=== PATIENT | female | born 2000 | race Caucasian/White ===

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

== ENCOUNTER 2019-02-01 09:28 | Emergency (ER) | payer SELFPAY ==
[2019-02-01] MEDS ORDERED: ACETAMINOPHEN 325 MG TABLET PO ONE (10:24)
[2019-02-01] MEDS ORDERED: IBUPROFEN 600 MG TABLET PO ONE (10:24)
--- NOTE | 2019-02-01 10:24 | ER Document Report ---
Addendum entered and electronically signed by NINA CAMARGO FNP 02/01/19 22:44: Procedures - Immobilization Right Distal Leg Pre-Proc Neuro Vasc Exam: Normal Immobilizer type: Short Leg Posterior Performed by: PCT Post-Proc Neuro Vasc Exam: Normal, Unchanged from pre-exam Alignment checked and good: Yes Original Note: HPI - HPI Time Seen by Provider: 02/01/19 10:06 Pain Level: 5 Context: Patient is a 18-year-old female who presents the emergency department with a chief complaint of right ankle and lower leg pain. She was skateboarding yesterday and twisted her ankle medially and her leg went laterally. There is some ecchymosis and edema to the area. Admits to some tingling to the area. She has been taking ibuprofen and icing her ankle and leg at home. Denies any past medical history. Not taking any medications other than ibuprofen. - CONSTITUTIONAL Constitutional: DENIES: Chills - EENT EENT: DENIES: Sore Throat, Ear Pain - NEURO Neurology: DENIES: Headache - RESPIRATORY Respiratory: DENIES: Trouble Breathing, Coughing - REPRODUCTIVE Reproductive: DENIES: : - MUSCULOSKELETAL Musculoskeletal: REPORTS: Extremity pain - Right ankle and lower leg - DERM Skin Color: Normal, Ecchymosis - Right ankle Skin Problems: Abrasion - Right lateral ankle and right lateral proximal fibula area Past Medical History - Social History Smoking Status: Unknown if Ever Smoked Family History: Reviewed & Not Pertinent - Immunizations Hx Diphtheria, Pertussis, Tetanus Vaccination: Yes Vertical Provider Document - CONSTITUTIONAL Agree With Documented VS: Yes Exam Limitations: No Limitations General Appearance: No Apparent Distress - INFECTION CONTROL TRAVEL OUTSIDE OF THE [place] IN LAST 30 DAYS: No - HEENT HEENT: Atraumatic, Normocephalic - NECK Neck: Normal Inspection - RESPIRATORY Respiratory: Breath Sounds Normal, No Respiratory Distress - CARDIOVASCULAR Cardiovascular: Regular Rate, Regular Rhythm Pulses: Normal: Posterior tibial, Dorsalis pedis - MUSCULOSKELETAL/EXTREMETIES Musculoskeletal/Extremeties: Tender - Right ankle and lower extremity - NEURO Level of Consciousness: Awake, Alert, Appropriate Motor/Sensory: No Motor Deficit, No Sensory Deficit, No Pronator Drift - DERM Integumentary: Warm, Dry Course - Re-evaluation Re-evalutation: 02/01/19 10:26 Patient will be sent for a right ankle and tib-fib x-ray. I do not suspect compartment syndrome. Patient has good dorsalis pedis and posterior tibial pulses. 02/01/19 11:10 Patient has a bimalleolar fracture. She will follow-up with orthopedics tomorrow. She will be placed in a splint. Results were given to the patient. Verbal discharge instructions were given to the patient. They verbalized understanding. They are stable for discharge. - Vital Signs Vital signs: Temp Pulse Resp BP Pulse Ox 98.5 F 120 H 16 103/65 100 02/01/19 09:33 02/01/19 09:33 02/01/19 09:33 02/01/19 09:33 02/01/19 09:33 Discharge - Discharge Clinical Impression: Bimalleolar fracture Qualifiers: Encounter type: initial encounter Fracture type: closed Laterality: right Qualified Code(s): S82.841A - Displaced bimalleolar fracture of right lower leg, initial encounter for closed fracture Condition: Stable Disposition: HOME, SELF-CARE Instructions: Use of Crutches ([facility]), Ice & Elevation ([facility]) Additional Instructions: You were seen today in the emergency department for right ankle pain. You do have a fracture. Please follow-up with orthopedics tomorrow. You have been put in a cast. Please rest the area, elevate your leg, and do not walk on your leg. You have been provided crutches. Please take ibuprofen 600 mg and Tylenol 1000 mg every 6 hours as needed for your pain. If you develop worsening swelling, are unable to move your toes, or any symptoms that are worrisome to you, please return to the emergency department. Forms: Return to Work Referrals: LAKIA ANTHONY MD [ACTIVE STAFF] - Follow up as needed EDUARD OJEDA DO [ACTIVE STAFF] - Follow up tomorrow
--- NOTE | 2019-02-01 10:54 | RADIOLOGY REPORT (SQ) ---
EXAM DESCRIPTION: TIBIA FIBULA RIGHT; ANKLE RIGHT COMPLETE COMPLETED DATE/TIME: 02/01/2019 10:43 am REASON FOR STUDY: fall COMPARISON: None. NUMBER OF VIEWS: Five views. TECHNIQUE: Two radiographic images acquired of the right tibia and fibula to include the knee and an kle in at least one projection. Three views of the right ankle. LIMITATIONS: None. FINDINGS: MINERALIZATION: Normal. BONES: Spiral fracture distal fibula at level of syndesmosis with approximately 1/2 shaft width poste rior displacement. Nondisplaced fracture of the posterior malleolus. Widening of the medial mortise . SOFT TISSUES: No foreign body. OTHER: No other significant finding. IMPRESSION: Bimalleolar ankle fracture. TECHNICAL DOCUMENTATION: JOB ID: [id number] [employer]- All Rights Reserved Reading location - IP/workstation name: [email or web address]
--- NOTE | 2019-02-01 10:54 | RADIOLOGY REPORT (SQ) ---
EXAM DESCRIPTION: TIBIA FIBULA RIGHT; ANKLE RIGHT COMPLETE COMPLETED DATE/TIME: 02/01/2019 10:43 am REASON FOR STUDY: fall COMPARISON: None. NUMBER OF VIEWS: Five views. TECHNIQUE: Two radiographic images acquired of the right tibia and fibula to include the knee and an kle in at least one projection. Three views of the right ankle. LIMITATIONS: None. FINDINGS: MINERALIZATION: Normal. BONES: Spiral fracture distal fibula at level of syndesmosis with approximately 1/2 shaft width poste rior displacement. Nondisplaced fracture of the posterior malleolus. Widening of the medial mortise . SOFT TISSUES: No foreign body. OTHER: No other significant finding. IMPRESSION: Bimalleolar ankle fracture. TECHNICAL DOCUMENTATION: JOB ID: [id number] [employer]- All Rights Reserved Reading location - IP/workstation name: [email or web address]
[2019-02-01 12:00] VITALS: BP 126/80
== END 2019-02-01 12:03 | disposition home or self-care (01) ==
LOC: ER 09:28
DX: S82.841A Displaced bimalleolar fracture of right lower leg, initial encounter for closed fracture (principal); X50.1XXA Overexertion from prolonged static or awkward postures, initial encounter; Y93.51 Activity, roller skating (inline) and skateboarding; R20.2 Paresthesia of skin
CPT/HCPCS: 99283

== ENCOUNTER 2019-02-08 08:22 | Day surgery (SDC) | payer SELFPAY ==
[2019-02-05 10:56] LABS: APPEARANCE,URINE CLEAR; BILIRUBIN,URINE NEGATIVE (NEGATIVE); COLOR,URINE YELLOW; GLUCOSE, URINE NEGATIVE (NEGATIVE); KETONES,URINE NEGATIVE (NEGATIVE); LEUKOCYTE ESTERASE,URINE MODERATE (NEGATIVE); NITRITE,URINE NEGATIVE (NEGATIVE); PROTEIN,URINE NEGATIVE (NEGATIVE); URINE SPECIFIC GRAVITY 1.021; UROBILINOGEN,URINE NEGATIVE mg/dL (<2.0)
[2019-02-05 10:57] LABS: ABSOLUTE EOSINOPHILS # (AUTO) 0.1 10^3/uL (0.0-0.6); ABSOLUTE LYMPHOCYTES (AUTO) 1.6 10^3/uL (0.5-4.7); ABSOLUTE MONOCYTES (AUTO) 0.6 10^3/uL (0.1-1.4); ABSOLUTE NEUT (AUTO) 5.3 10^3/uL (1.7-8.2); BASOPHILS % (AUTO) 0.6 % (0-2); EOSINOPHILS % (AUTO) 0.9 % (0-6); HEMATOCRIT 38.2 % (36.0-47.0); HEMOGLOBIN 13.4 g/dL (12.0-15.5); LYMPHOCYTES % (AUTO) 21.4 % (13-45); MEAN CORPUSCULAR HEMOGLOBIN 31.4 pg (27.0-33.4); MEAN CORPUSCULAR VOLUME 90 fl (80-97); MONOCYTES % (AUTO) 7.6 % (3-13); PLATELET COUNT 268 10^3/uL (150-450); RED BLOOD COUNT 4.25 10^6/uL (3.72-5.28); RED CELL DISTRIBUTION WIDTH 12.8 % (11.5-14.0); SEGMENTED NEUTROPHILS % (AUTO) 69.5 % (42-78); TOTAL CELLS COUNTED % (AUTO) 100 %; WHITE BLOOD COUNT 7.6 10^3/uL (4.0-10.5)
[2019-02-05 11:18] LABS: ANION GAP 13 (5-19); BLOOD UREA NITROGEN 12 mg/dL (7-20); CALCIUM 9.9 mg/dL (8.4-10.2); CARBON DIOXIDE 24 mmol/L (22-30); CHLORIDE 106 mmol/L (98-107); GLUCOSE 84 mg/dL (75-110); POTASSIUM 4.4 mmol/L (3.6-5.0); SODIUM 143.2 mmol/L (137-145)
--- NOTE | 2019-02-05 20:50 | EKG REPORT ---
SEVERITY:- NORMAL ECG - SINUS RHYTHM : Confirmed by: Sarah Beth Garcia MD 05-Feb-2019 20:49:49
[~2019-02-08 08:22] MED LIST: CEFAZOLIN 2 GM/D5W RTU 2 GM/50 ML RTUPB IV PRN; LACTATED RINGERS 1000 ML IV PRN; LIDOCAINE 0.5% INJ-PF (5 MG/ML) 50 ML SDV SUBCUT PRN
[2019-02-08] MEDS ORDERED: CEFAZOLIN 2 GM/D5W RTU 2 GM/50 ML RTUPB IV ONE (08:57)
[2019-02-08] MEDS ORDERED: FENTANYL CITRATE INJ/PF 100 MCG/2 ML AMPUL ONE ×2 (09:22→10:40)
[2019-02-08] MEDS ORDERED: PROPOFOL INJ 200 MG/20 ML VIAL IV ONE (09:22)
[2019-02-08] MEDS ORDERED: ATROPINE SULFATE INJ 1 MG/10 ML DISP.SYRIN IV ONE (09:23)
[2019-02-08] MEDS ORDERED: BUPIVACAINE HCL 0.25% /EPINEPHRINE INJ/PF 30 ML SDV ONE (09:46)
[2019-02-08] MEDS ORDERED: ONDANSETRON HCL INJ/PF 4 MG/2 ML SDV ONE (10:40)
[2019-02-08] MEDS ORDERED: ACETAMINOPHEN 1,000 MG/100 ML RTUPB IV ONE (10:40)
[2019-02-08] MEDS ORDERED: DEXAMETHASONE SOD PHOSPHATE INJ 4 MG/1 ML VIAL ONE (10:40)
[2019-02-08] MEDS ORDERED: MIDAZOLAM 2 MG/2 ML INJ ONE (10:40)
[2019-02-08] MEDS ORDERED: DIPHENHYDRAMINE HCL 50 MG/ML VIAL IV PRN (11:47)
[2019-02-08] MEDS ORDERED: MORPHINE SULFATE 10 MG/ML INJ IV PRN (11:47)
[2019-02-08] MEDS ORDERED: ONDANSETRON HCL INJ/PF 4 MG/2 ML SDV IV PRN (11:47)
[2019-02-08] MEDS ORDERED: FENTANYL CITRATE INJ/PF 100 MCG/2 ML AMPUL IV PRN ×3 (11:47)
[2019-02-08] MEDS ORDERED: MEPERIDINE HCL/PF INJ 25 MG/1 ML DISP.SYRIN IV PRN (11:47)
[2019-02-08] MEDS ORDERED: PROMETHAZINE HCL INJ 25 MG/1 ML VIAL IV PRN ×2 (11:47)
--- NOTE | 2019-02-08 12:02 | Discharge Summary ---
Discharge Summary (SDC) - Discharge Final Diagnosis: Right lateral malleolus fracture Date of Surgery: 02/08/19 Discharge Date: 02/08/19 Condition: Good Treatment or Instructions: Touchdown weightbearing restriction right lower extremity. Keep splint clean and dry. Elevate to decrease swelling. Prescriptions: Oxycodone HCl/Acetaminophen [Percocet 5-325 mg Tablet] 1 tab PO Q6 PRN #40 tab PRN Reason: Referrals: CHRIS BORDEN DO [Primary Care Provider] - Discharge Diet: As Tolerated, Regular Respiratory Treatments at Home: Deep Breathing/Coughing Discharge Activity: Balance Activity w/Rest, No Driving, No tub bath, Other - Touchdown weightbearing restriction right lower extremity Home Care Assistance: None Needed Adaptive Devices on Discharge: Axillary Crutches Report the Following to Your Physician Immediately: Shortness of Breath, Fever over 101 Degrees, Drainage-Foul Smelling
--- NOTE | 2019-02-08 12:04 | Operative Report ---
Operative Report DATE OF SURGERY: 02/08/19 PREOPERATIVE DIAGNOSIS: Right lateral malleolus fracture OPERATION: Open reduction internal fixation right lateral malleolus SURGEON: LA SWAIN ANESTHESIA: GA ESTIMATED BLOOD LOSS: 25 PROCEDURE: With the patient supine on the operative table the right lower extremities prepped and draped for sterile fashion. Limb is elevated for exsanguination rene rniquet inflated to 280 torr. Longitudinal incisions made over the distal lateral fibula and sharp dissection was carried incision to the sub-periosteum. Subperiosteal was elevated. The fracture was reduced under direct visualization. Is held with a temporary interfrag pin. Subsequently [place] titanium distal fibula plate is applied and secured with 4 screws distally and 4 screws proximally. Hardware position and fracture reduction were assessed fluoroscopically and felt to be adequate. The tourniquet is deflated. Wound is irrigated with bulb lavage. Hemostasis obtained with electrocautery. Wounds closed in layers interrupted Vicryl followed by severino. A sterile compressive dressing posterior plaster splint were applied and the patient's return to the PACU in satisfactory condition.
[2019-02-08] MEDS: FENTANYL CITRATE INJ/PF 100 MCG/2 ML AMPUL ONE ×2 (12:30→12:35)
[2019-02-08] MEDS: MORPHINE SULFATE 10 MG/ML INJ ONE ×2 (12:41→12:46)
--- NOTE | 2019-02-08 13:24 | RADIOLOGY REPORT (SQ) ---
EXAM DESCRIPTION: NO CHG FLUORO; ANKLE RIGHT AP/LATERAL COMPLETED DATE/TIME: 02/08/2019 1:13 pm REASON FOR STUDY: ORIF RT ANKLE ASST WITH FLUORO IN OR S82.841A DISPLACED BIMALLEOLAR FRACTURE OF R IGHT LOWER LEG, COMPARISON: 02/01/2019. FLUOROSCOPY TIME: 0.1 minute. 2 images saved to PACS. TECHNIQUE: Intra-operative images acquired during surgical procedure to evaluate progress. NUMBER OF IMAGES: 2 images. LIMITATIONS: None. FINDINGS: Surgical fixation with placement of hardware on the distal fibula. IMPRESSION: IMAGE(S) OBTAINED DURING PROCEDURE. COMMENT: Quality ID 145: Final reports for procedures using fluoroscopy that document radiation exp osure indices, or exposure time and number of fluorographic images (if radiation exposure indices are not available) Please consult full operative report of the attending physician for description of the procedure. TECHNICAL DOCUMENTATION: JOB ID: [id number] [employer]- All Rights Reserved Reading location - IP/workstation name: [email or web address]
--- NOTE | 2019-02-08 13:24 | RADIOLOGY REPORT (SQ) ---
EXAM DESCRIPTION: NO CHG FLUORO; ANKLE RIGHT AP/LATERAL COMPLETED DATE/TIME: 02/08/2019 1:13 pm REASON FOR STUDY: ORIF RT ANKLE ASST WITH FLUORO IN OR S82.841A DISPLACED BIMALLEOLAR FRACTURE OF R IGHT LOWER LEG, COMPARISON: 02/01/2019. FLUOROSCOPY TIME: 0.1 minute. 2 images saved to PACS. TECHNIQUE: Intra-operative images acquired during surgical procedure to evaluate progress. NUMBER OF IMAGES: 2 images. LIMITATIONS: None. FINDINGS: Surgical fixation with placement of hardware on the distal fibula. IMPRESSION: IMAGE(S) OBTAINED DURING PROCEDURE. COMMENT: Quality ID 145: Final reports for procedures using fluoroscopy that document radiation exp osure indices, or exposure time and number of fluorographic images (if radiation exposure indices are not available) Please consult full operative report of the attending physician for description of the procedure. TECHNICAL DOCUMENTATION: JOB ID: [id number] [employer]- All Rights Reserved Reading location - IP/workstation name: [email or web address]
[2019-02-08] MEDS ORDERED: OXYCODONE-ACETAMINOPHEN 5-325 MG TABLET ONE (13:28)
[2019-02-08] MEDS ORDERED: KETOROLAC TROMETHAMINE INJ/PF 30 MG/1 ML SDV ONE (13:41)
[2019-02-08 14:42] VITALS: BP 129/84
== END 2019-02-08 14:20 | disposition home or self-care (01) ==
LOC: OROUT 08:22
PROVIDERS: ATTEND Orthopaedic Surgery
DX: S82.61XA Displaced fracture of lateral malleolus of right fibula, initial encounter for closed fracture (principal); V00.131A Fall from skateboard, initial encounter
CPT/HCPCS: 93005; 36415; 85025; 81025; 80048; 81001; 73600; 93010; 27792; C1713 ×6; J2250; J3490; J1100; J3010; J1885; J2270; J2405; J2704; J0690; J0131; 01480; J0461

== ENCOUNTER 2019-03-05 09:19 | Emergency (ER) | payer MEDICAID ==
[2019-03-05] MEDS ORDERED: ACETAMINOPHEN 325 MG TABLET PO ONE (10:21)
--- NOTE | 2019-03-05 10:55 | RADIOLOGY REPORT (SQ) ---
EXAM DESCRIPTION: ANKLE RIGHT COMPLETE COMPLETED DATE/TIME: 03/05/2019 10:45 am REASON FOR STUDY: pain COMPARISON: 02/08/2019 NUMBER OF VIEWS: Three views. TECHNIQUE: AP, lateral, and oblique radiographic images acquired of the right ankle. LIMITATIONS: None. FINDINGS: MINERALIZATION: Normal. BONES: Images show compression plate on the distal fibula. No new or acute findings. JOINTS: No effusions. SOFT TISSUES: No soft tissue swelling. No foreign body. OTHER: No other significant finding. IMPRESSION: NEGATIVE STUDY OF THE RIGHT ANKLE. NO RADIOGRAPHIC EVIDENCE OF ACUTE INJURY. TECHNICAL DOCUMENTATION: JOB ID: [id number] [employer]- All Rights Reserved Reading location - IP/workstation name: [email or web address]
--- NOTE | 2019-03-05 11:48 | ER Document Report ---
HPI - HPI Patient complains to provider of: Right ankle pain Time Seen by Provider: 03/05/19 10:19 Pain Level: 4 Context: Patient is otherwise healthy 18-year-old female presents to the emergency department for increased pain in her right ankle. Patient sustained a bimalleolar fracture on 02/01/2019. Had a surgical repair on 02/08/2019. States orthopedic to keep her boot in place and use crutches. Patient states it felt better so she started walking on it prematurely. Patient states last couple of days since walking on it she has noticed increased pain and swelling to her right lower extremity which prompted her visit to the emergency room. Patient still taking oxycodone for generalized pain. - REPRODUCTIVE LMP: Dep shot Reproductive: DENIES: : Past Medical History - General Information source: Patient - Social History Smoking Status: Smoker,Current Status Unk Family History: Reviewed & Not Pertinent Patient has suicidal ideation: No Patient has homicidal ideation: No - Past Medical History Cardiac Medical History: Denies: Hx Coronary Artery Disease, Hx Heart Attack, Hx Hypertension Pulmonary Medical History: Denies: Hx Asthma, Hx Bronchitis, Hx COPD, Hx Pneumonia Neurological Medical History: Denies: Hx Cerebrovascular Accident, Hx Seizures Renal/ Medical History: Denies: Hx Peritoneal Dialysis Musculoskeletal Medical History: Denies Hx Arthritis - Immunizations Hx Diphtheria, Pertussis, Tetanus Vaccination: Yes Vertical Provider Document - CONSTITUTIONAL Agree With Documented VS: Yes Notes: GENERAL: Alert, interacts well. No acute distress. HEAD: Normocephalic, atraumatic. EYES: Pupils equal, round, and reactive to light. Extraocular movements intact. ENT: Oral mucosa moist, tongue midline. NECK: Full range of motion. Supple. Trachea midline. LUNGS: Clear to auscultation bilaterally, no wheezes, rales, or rhonchi. No respiratory distress. HEART: Regular rate and rhythm. No murmur ABDOMEN: Soft, non-tender. Non-distended. Bowel sounds present in all 4 quadrants. EXTREMITIES: Moves all 4 extremities spontaneously. normal radial and dorsalis pedis pulses bilaterally. No cyanosis. Minor edema noted right lower extremity. Steri-Strips are in place, some removed to reveal a well-healing scar right lateral ankle. No fluctuance or induration noted, no discharge noted. Minor warmth but no erythema noted distal right lower extremity. Capillary refill less than 2 seconds all 4 extremities. BACK: no cervical, thoracic, lumbar midline tenderness. No saddle anesthesia, normal distal neurovascular exam. NEUROLOGICAL: Alert and oriented x3. Normal speech. cranial nerves II through XII grossly intact PSYCH: Normal affect, normal mood. SKIN: Warm, dry, normal turgor. - INFECTION CONTROL TRAVEL OUTSIDE OF THE [place] IN LAST 30 DAYS: No Course - Re-evaluation Re-evalutation: 03/05/19 11:45 Patient's x-ray reveals no signs of abnormalities, hardware in place. Discussed continuation of use of boot and use of crutches to not put pressure on her right lower extremity. Discussed close follow-up with orthopedics. Patient stable for discharge. - Vital Signs Vital signs: Temp Pulse Resp BP Pulse Ox 98.3 F 103 H 16 143/69 H 99 03/05/19 09:26 03/05/19 09:26 03/05/19 09:26 03/05/19 09:03/05/19 09:26 Discharge - Discharge Clinical Impression: Right ankle pain Qualifiers: Chronicity: unspecified Qualified Code(s): M25.571 - Pain in right ankle and joints of right foot Condition: Stable Disposition: HOME, SELF-CARE Instructions: Use of Crutches ([facility]) Additional Instructions: As we discussed you have been seen and treated in the emergency meant for increased pain to your right lower extremity. Your x-ray reveals that your hardware is in place. Please make sure you continue to refrain from putting pressure on your right lower extremity, use your crutches at all times. Please follow-up with the orthopedic in the next 24 to 48 hours. Please also return to the emergency room should you notice any redness, increased swelling noted to your right lower extremity as well as discharge from your repair site. Referrals: LA SWAIN MD [ACTIVE STAFF] - Follow up as needed
[2019-03-05 12:00] VITALS: BP 111/64
== END 2019-03-05 12:00 | disposition home or self-care (01) ==
LOC: ER 09:19
DX: M25.571 Pain in right ankle and joints of right foot (principal); M79.89 Other specified soft tissue disorders; Z98.890 Other specified postprocedural states; F17.200 Nicotine dependence, unspecified, uncomplicated
CPT/HCPCS: 99283; 73610; J3490

== ENCOUNTER 2019-04-08 06:49 | Emergency (ER) | payer MEDICAID ==
[2019-04-08] MEDS ORDERED: ACETAMINOPHEN 325 MG TABLET PO ONE (07:00)
[2019-04-08] MEDS ORDERED: IBUPROFEN 600 MG TABLET PO ONE (07:38)
--- NOTE | 2019-04-08 07:41 | ER Document Report ---
Addendum entered and electronically signed by JC MEZA PA-C 04/08/19 09:52: Discharge - Discharge Clinical Impression: Strep pharyngitis Condition: Stable Disposition: HOME, SELF-CARE Instructions: Acetaminophen, Fever ([facility]), Strep Throat ([facility]) Additional Instructions: Home and rest. Medication as prescribed. Continue Tylenol alternate with Motrin every 4 hours keep the fever down. Push fluids but avoid milk and dairy products for the next 48 hours this will stop you from getting secretion buildup in the back your throat. You can use warm salt water gargles 3-4 times a day and or Chloraseptic spray the get from the pharmacy. Should you have trouble swallowing or holding your secretions if you are drooling or your pain gets worse or you get short of breath return to ER for a recheck. Prescriptions: Amoxicillin Trihydrate [Amoxil 875 mg Tablet] 1 tab PO BID #20 tablet Fluconazole [Diflucan] 150 mg PO ONCE PRN #1 tablet PRN Reason: Forms: Smoking Cessation Education, Return to Work Referrals: [facility] [NO LOCAL MD] - Follow up as needed Original Note: ED Medical Screen (RME) - General Chief Complaint: Sore Throat Stated Complaint: FEVER/SORE THROAT Time Seen by Provider: 04/08/19 07:33 Notes: 19-year-old female with no medical history presents to the emergency department with chief complaint of fever and sore throat x2 days. She says that she has body aches, headache, rigors, fever, dysphagia, right ear pain, and tender lymph nodes on her neck. She denies any cough, shortness of breath or chest pain, nausea or vomiting, abdominal pain, urinary symptoms. I have greeted and performed a rapid initial assessment of this patient. A comprehensive ED assessment and evaluation of the patient, analysis of test results and completion of medical decision making process will be conducted by an additional ED providers. TRAVEL OUTSIDE OF THE [place] IN LAST 30 DAYS: No - Related Data Allergies/Adverse Reactions: No Known Allergies Allergy (Verified 03/05/19 09:20) Past Medical History - Past Medical History Cardiac Medical History: Denies: Hx Coronary Artery Disease, Hx Heart Attack, Hx Hypertension Pulmonary Medical History: Denies: Hx Asthma, Hx Bronchitis, Hx COPD, Hx Pneumonia Neurological Medical History: Denies: Hx Cerebrovascular Accident, Hx Seizures Renal/ Medical History: Denies: Hx Peritoneal Dialysis Musculoskeltal Medical History: Denies Hx Arthritis - Immunizations Hx Diphtheria, Pertussis, Tetanus Vaccination: Yes Physical Exam - Vital signs Vitals: Temp Pulse Resp BP Pulse Ox 102.8 F H 108 H 20 122/71 99 04/08/19 06:54 04/08/19 06:54 04/08/19 06:54 04/08/19 06:54 04/08/19 06:54 - Notes Notes: PHYSICAL EXAMINATION: Reviewed vital signs and charting by RN GENERAL: Alert, interacts well. No acute distress. HEAD: Normocephalic, atraumatic. EYES: Pupils equal, round, and reactive to light. Extraocular movements intact. ENT: Oral mucosa moist, tongue midline. Uvula midline, 3+ bilateral tonsillar hypertrophy with erythema and bilateral exudate, erythema of the oropharynx, no palatal petechiae NECK: Full range of motion. Supple. Trachea midline. LUNGS: Clear to auscultation bilaterally, no wheezes, rales, or rhonchi. No respiratory distress. HEART: Regular rate and rhythm. No murmur EXTREMITIES: Moves all 4 extremities spontaneously. No edema, No cyanosis. PSYCH: Normal affect, normal mood. SKIN: Warm, dry, normal turgor. No rashes or lesions noted. Course - Vital Signs Vital signs: Temp Pulse Resp BP Pulse Ox 102.8 F H 108 H 20 122/71 99 04/08/19 06:54 04/08/19 06:54 04/08/19 06:54 04/08/19 06:54 04/08/19 06:54
--- NOTE | 2019-04-08 08:33 | ER Document Report ---
ED Oral Problem - General Chief Complaint: Sore Throat Stated Complaint: FEVER/SORE THROAT Time Seen by Provider: 04/08/19 07:33 Primary Care Provider: [facility] [NO LOCAL MD] - Follow up as needed Mode of Arrival: Ambulatory Information source: Patient Notes: Patient is a 10-year-old female comes emergency room complaining of sore throat and fever. Onset was approximately 2 days ago and has been progressively getting worse. She has been taking Tylenol and [place] cold plus for the past 24 hours try to keep her fever down. She denies any nausea vomiting but has had a cough that is nonproductive. She denies any other medical problems. She is on the double shot and is unsure when her last period was. She smokes Jewels. 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 TRAVEL OUTSIDE OF THE [place] IN LAST 30 DAYS: No - HPI Patient complains to provider of: Sore throat Onset: Other - 2 days Onset: Gradual Quality of pain: Burning, Sharp Severity: Moderate Pain Level: 3 Sore throat: Moderate Swollen jaw/face: Mild Associated symptoms: Chills, Cough, Fever, White patches in mouth Worsened by: Nothing Relieved by: Nothing Similar symptoms previously: No Recently seen / treated by doctor/dentist: No - Related Data Allergies/Adverse Reactions: No Known Allergies Allergy (Verified 03/05/19 09:20) Past Medical History - General Information source: Patient - Social History Smoking Status: Current Every Day Smoker Cigarette use (# per day): Yes Smoking Education Provided: Yes Frequency of alcohol use: None Drug Abuse: None Lives with: Family Family History: Reviewed & Not Pertinent - Past Medical History Cardiac Medical History: Denies: Hx Coronary Artery Disease, Hx Heart Attack, Hx Hypertension Pulmonary Medical History: Denies: Hx Asthma, Hx Bronchitis, Hx COPD, Hx Pneumonia Neurological Medical History: Denies: Hx Cerebrovascular Accident, Hx Seizures Renal/ Medical History: Denies: Hx Peritoneal Dialysis Musculoskeletal Medical History: Denies Hx Arthritis - Immunizations Hx Diphtheria, Pertussis, Tetanus Vaccination: Yes Review of Systems - Review of Systems Constitutional: Chills, Fever, Malaise EENT: Throat pain, Difficulty swallowing Cardiovascular: No symptoms reported Respiratory: No symptoms reported Gastrointestinal: No symptoms reported Genitourinary: No symptoms reported Female Genitourinary: No symptoms reported Musculoskeletal: No symptoms reported Skin: No symptoms reported Hematologic/Lymphatic: No symptoms reported Neurological/Psychological: No symptoms reported -: Yes All other systems reviewed and negative Physical Exam - Vital signs Vitals: Temp Pulse Resp BP Pulse Ox 102.8 F H 108 H 20 122/71 99 04/08/19 06:54 04/08/19 06:54 04/08/19 06:54 04/08/19 06:54 04/08/19 06:54 Interpretation: Tachycardic, Febrile - Notes Notes: PHYSICAL EXAMINATION: GENERAL: Patient is a well-nourished well-developed 19-year-old female is in no apparent distress on physical exam today. She does appear moderately ill and uncomfortable. HEAD: Atraumatic, normocephalic. EYES: Pupils equal round and reactive to light, extraocular movements intact, conjunctiva are normal. ENT: physical exam head and upper airway showed nasal mucosa to be more erythematous and edematous with minor rhinorrhea noted. Bilateral nasal congestion is also noted. Examination of the ears show external canals to be normal-appearing and TMs are visualized with no retraction or bulging. Posterior pharynx shows bilaterally enlarged tonsils with the right being greater than left moderate amount of nolasco-white exudate noted again her right greater than left. Uvula is midline with moderate erythema there is no encroachment upon the uvula at this time. Airway is patent. NECK: Patient displays bilateral anterior cervical lymphadenopathy tender to palpation. Patient has full range of motion of the neck no sign of meningismus LUNGS: Breath sounds clear to auscultation bilaterally and equal. No wheezes rales or rhonchi. HEART: Tachycardic rate and rhythm without murmurs Female : deferred Musculoskeletal: Normal range of motion, no pitting or edema. No cyanosis. NEUROLOGICAL: Normal speech, normal gait. Normal sensory, motor exams PSYCH: Normal mood, normal affect. SKIN: Warm, Dry, normal turgor, no rashes or lesions noted. Course - Re-evaluation Re-evalutation: 04/08/19 09:16 Patient strep came back positive however the right tonsil was markedly more enlarged than the left and though there was no encroachment upon the uvula at this time I felt it was necessary to get the quickest intervention as possible to help to start to eradicate the strep. Is why decided to use the Bicillin and will still cover with oral antibiotics as well. This does not present as a peritonsillar abscess. - Vital Signs Vital signs: Temp Pulse Resp BP Pulse Ox 98.0 F 71 18 103/57 L 100 04/08/19 10:07 04/08/19 10:07 04/08/19 10:07 04/08/19 10:07 04/08/19 10:07 Discharge - Discharge Clinical Impression: Strep pharyngitis Condition: Stable Disposition: HOME, SELF-CARE Instructions: Acetaminophen, Fever ([facility]), Strep Throat ([facility]) Additional Instructions: Home and rest. Medication as prescribed. Continue Tylenol alternate with Motrin every 4 hours keep the fever down. Push fluids but avoid milk and dairy products for the next 48 hours this will stop you from getting secretion buildup in the back your throat. You can use warm salt water gargles 3-4 times a day and or Chloraseptic spray the get from the pharmacy. Should you have trouble swallowing or holding your secretions if you are drooling or your pain gets worse or you get short of breath return to ER for a recheck. Prescriptions: Amoxicillin Trihydrate [Amoxil 875 mg Tablet] 1 tab PO BID #20 tablet Fluconazole [Diflucan] 150 mg PO ONCE PRN #1 tablet PRN Reason: Forms: Smoking Cessation Education, Return to Work [facility]: [facility] [NO LOCAL MD] - Follow up as needed
[2019-04-08] MEDS ORDERED: DEXAMETHASONE SOD PHOS INJ 10 MG/1 ML VIAL IM ONE (09:14)
[2019-04-08] MEDS ORDERED: PENICILLIN G BENZATHINE 1.2 MILLION UNIT/2 ML DISP.SYRIN IM ONE (09:15)
[2019-04-08 10:09] VITALS: BP 103/57
== END 2019-04-08 10:14 | disposition home or self-care (01) ==
LOC: ER 06:49
DX: J02.0 Streptococcal pharyngitis (principal); R50.9 Fever, unspecified; R05 Cough; F17.210 Nicotine dependence, cigarettes, uncomplicated
CPT/HCPCS: 99283; 96372; 87880; J3490 ×2; J0561; J1100

== ENCOUNTER 2020-07-24 10:22 | Day surgery (SDC) | payer OTHER ==
[2020-07-19 11:08] LABS: HEMATOCRIT 40.8 % (36.0-47.0); HEMOGLOBIN 14.3 g/dL (12.0-15.5); MEAN CORPUSCULAR HEMOGLOBIN 31.9 pg (27.0-33.4); MEAN CORPUSCULAR VOLUME 91 fl (80-97); PLATELET COUNT 237 10^3/uL (150-450); RED BLOOD COUNT 4.48 10^6/uL (3.72-5.28); RED CELL DISTRIBUTION WIDTH 12.9 % (11.5-14.0); WHITE BLOOD COUNT 7.3 10^3/uL (4.0-10.5)
[2020-07-19 11:13] LABS: APPEARANCE,URINE SLIGHTLY-CLOUDY; BILIRUBIN,URINE NEGATIVE (NEGATIVE); COLOR,URINE YELLOW; GLUCOSE, URINE NEGATIVE (NEGATIVE); KETONES,URINE NEGATIVE (NEGATIVE); LEUKOCYTE ESTERASE,URINE NEGATIVE (NEGATIVE); NITRITE,URINE NEGATIVE (NEGATIVE); PROTEIN,URINE NEGATIVE (NEGATIVE); URINE SPECIFIC GRAVITY 1.006; UROBILINOGEN,URINE NEGATIVE mg/dL (<2.0)
[2020-07-19 11:27] LABS: ANION GAP 7 (5-19); BLOOD UREA NITROGEN 10 mg/dL (7-20); CALCIUM 9.4 mg/dL (8.4-10.2); CARBON DIOXIDE 28 mmol/L (22-30); CHLORIDE 105 mmol/L (98-107); GLUCOSE 58 mg/dL (75-110); POTASSIUM 3.9 mmol/L (3.6-5.0)
[~2020-07-24 10:22] MED LIST changes: +FENTANYL CITRATE INJ/PF 100 MCG/2 ML AMPUL ONE; +KETOROLAC TROMETHAMINE 60 MG/2 ML SDV ONE; -LACTATED RINGERS 1000 ML IV PRN; +LIDOCAINE 2% INJ-PF (20 MG/ML) 2 ML AMPUL ONE; +MIDAZOLAM 2 MG/2 ML INJ ONE; +ONDANSETRON HCL INJ/PF 4 MG/2 ML SDV ONE; +PROPOFOL INJ 200 MG/20 ML VIAL IV ONE
[2020-07-24] MEDS ORDERED: CEFAZOLIN 2 GM/D5W RTU 2 GM/50 ML RTUPB IV ONE (10:32)
[2020-07-24] MEDS ORDERED: BUPIVACAINE HCL 0.5%-EPI 1:200000 INJ/PF 30 ML VIAL ONE (11:51)
[2020-07-24] MEDS ORDERED: FENTANYL CITRATE INJ/PF 100 MCG/2 ML AMPUL ONE ×2 (14:43→15:55)
[2020-07-24] MEDS ORDERED: DEXMEDETOMIDINE INJ 80 MCG/20 ML VIAL IV ONE (14:44)
[2020-07-24] MEDS ORDERED: EPHEDRINE SULFATE INJ 50 MG/1 ML AMPULE ONE (14:44)
[2020-07-24] MEDS ORDERED: PROPOFOL INJ 200 MG/20 ML VIAL IV ONE (14:44)
[2020-07-24] MEDS ORDERED: MIDAZOLAM 2 MG/2 ML INJ ONE (14:44)
[2020-07-24] MEDS ORDERED: DIPHENHYDRAMINE HCL 50 MG/ML VIAL IV PRN (15:08)
[2020-07-24] MEDS ORDERED: PROMETHAZINE HCL INJ 25 MG/1 ML VIAL IV PRN ×2 (15:08)
[2020-07-24] MEDS ORDERED: MEPERIDINE HCL/PF INJ 25 MG/1 ML DISP.SYRIN IV PRN (15:08)
[2020-07-24] MEDS ORDERED: OXYCODONE-ACETAMINOPHEN 5-325 MG TABLET PO PRN ×3 (15:08→15:45)
[2020-07-24] MEDS ORDERED: FENTANYL CITRATE INJ/PF 100 MCG/2 ML AMPUL IV PRN ×3 (15:08)
[2020-07-24] MEDS ORDERED: ONDANSETRON HCL INJ/PF 4 MG/2 ML SDV IV PRN (15:08)
[2020-07-24] MEDS ORDERED: LIDOCAINE 1% INJ-PF (10 MG/ML) 30 ML SDV ONE (15:10)
--- NOTE | 2020-07-24 15:31 | Operative Report ---
Operative Report DATE OF SURGERY: 07/24/20 PREOPERATIVE DIAGNOSIS: Retained hardware right ankle OPERATION: Hardware removal right ankle SURGEON: LA SWAIN ANESTHESIA: LMAC TISSUE REMOVED OR ALTERED: Plate and 8 screws to CSS, cultures to microbiology ESTIMATED BLOOD LOSS: Minimal PROCEDURE: With the patient supine the operative table right lower extremities prepped and draped in sterile fashion. The previous lateral malleolar incision is infiltrated with a combination of Marcaine, Xylocaine, and epinephrine. Subsequent longitudinal incision was made and carried down to the underlying plate. The 8 screws and plate are removed uneventfully. The wound is irrigated. Hemostasis obtained with electrocautery. The wound is then closed in layers using rapid Vicryl followed by nylon. A sterile compressive dressing was applied and the patient was returned to PACU in satisfactory condition.
--- NOTE | 2020-07-24 15:32 | Discharge Summary ---
Discharge Summary (SDC) - Discharge Final Diagnosis: Retained hardware right ankle Date of Surgery: 07/24/20 Discharge Date: 07/24/20 Condition: Good Treatment or Instructions: Weightbearing as tolerated ambulation. Keep the compressive skin clean dry and intact until you return to the office. Discharge Diet: As Tolerated Respiratory Treatments at Home: Deep Breathing/Coughing Discharge Activity: Balance Activity w/Rest, No tub bath Home Care Assistance: None Needed
[2020-07-24] MEDS ORDERED: ONDANSETRON 4 MG TAB.RAPDIS PO PRN (15:45)
[2020-07-24] MEDS ORDERED: OXYCODONE-ACETAMINOPHEN 5-325 MG TABLET ONE (16:40)
[2020-07-24 17:45] VITALS: BP 104/64
== END 2020-07-24 17:50 | disposition home or self-care (01) ==
LOC: OROUT 10:22
PROVIDERS: ATTEND Orthopaedic Surgery
DX: T84.84XA Pain due to internal orthopedic prosthetic devices, implants and grafts, initial encounter (principal); Y83.8 Other surgical procedures as the cause of abnormal reaction of the patient, or of later complication, without mention of misadventure at the time of the procedure; M25.571 Pain in right ankle and joints of right foot; F17.210 Nicotine dependence, cigarettes, uncomplicated; R01.1 Cardiac murmur, unspecified; Z03.818 Encounter for observation for suspected exposure to other biological agents ruled out
CPT/HCPCS: 36415; 87070; 87205; 85027; 87635; 81025; 87075; 87077; 80048; 81001; 01480; 20680; J2250; J3490 ×4; J1885; J3010; J2405; J2704; J0690; C9803; 1480; 87186